=== PATIENT | male | born 1970 | race Caucasian/White ===

== ENCOUNTER 2020-07-28 23:12 | Emergency (ER) | payer MEDICARE, OTHER ==
[~2020-07-28] VITALS: Ht 172.7 cm; Wt 72.6 kg
[~2020-07-28 23:12] MED LIST: BUPR75TA3; FLUO10CA26; GABA100C; HIV MEDICATION
--- NOTE | 2020-07-28 23:20 | NUR ---
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 PT ALSO C/O BURNING SENSATION OF THROAT. PT STATES "I WAS CLEANING AT WORK AND THE BOTTLE DIDN'T HAVE A LABEL SO I OPENED THE CAP TO SMELL IT, AND IT IMMEDIATELY BURNED MY THROAT". PT AAOX4. O2 SAT 79% ROOM AIR, PLACED ON 15L NONREBREATHER AND TOLERATING WELL, O2 SAT NOW 100%. NOTED DRY COUGH. AMBULATORY WITH STEADY GAIT. PLACED IN GOWN AND ON CONTINOUS ACCOUNTS RECEIVABLE PROCESSOR AND PULSE OX, WILL CONTINUE TO MONITOR
--- NOTE | 2020-07-28 23:25 | NUR ---
RT AT BEDSIDE
--- NOTE | 2020-07-28 23:49 | NUR ---
SPOKE WITH OVIDIO FROM POISON CONTROL. RECOMMENDED TO GET CXR, ADMINISTER BREATHING TREATMENT IF NEEDED. CONTINUE OXYGEN. MONITOR FOR 2-4 HOURS. NO LABS NEEDED, SUPPORTIVE MEASURES UNTIL FULLY ASYMTOMATIC.
[2020-07-28 23:54] LABS: BASOPHILS % (AUTO) 0.6 % (0.0-2.0); EOSINOPHILS % (AUTO) 2.7 % (0.0-6.0); HEMATOCRIT 49 % (39-51); HEMOGLOBIN 16.5 g/dL (13.5-17.5); LYMPHOCYTES # (AUTO) 2.7 /CMM (0.8-4.8); LYMPHOCYTES % (AUTO) 40.9 % (20.0-44.0); MEAN CORPUSCULAR HGB CONC 34 g/dl (31.0-36.0); MEAN CORPUSCULAR VOLUME 86 fL (80-96); MONOCYTES # (AUTO) 0.5 /CMM (0.1-1.30); MONOCYTES % (AUTO) 8.1 % (2.0-12.0); NEUTROPHILS # (AUTO) 3.1 /CMM (1.8-8.9); NEUTROPHILS % (AUTO) 47.7 % (43.0-81.0); PLATELET COUNT (AUTO) 211 /CMM (150-450); RED BLOOD CELL COUNT(AUTO) 5.66 MIL/uL (4.5-6.0); WHITE BLOOD COUNT (AUTO) 6.6 K/uL (4.3-11.0)
[2020-07-29] MEDS ORDERED: ALBUTEROL FS 2.5 MG/3 ML VIAL.NEB NEB ONE
[2020-07-29] MEDS ORDERED: IPRATROPIUM NEB FS 0.5 MG/2.5 ML AMPUL.NEB NEB ONE
--- NOTE | 2020-07-29 00:01 | NUR ---
RADIOLOGY AT BEDSIDE FOR CXR
[2020-07-29 00:19] LABS: ALANINE AMINOTRANSFERASE 29 U/L (12-78); ALBUMIN 4.2 g/dL (3.4-5.0); ALKALINE PHOSPHATASE 86 U/L (46-116); ASPARTATE AMINOTRANSFERASE 45 U/L (15-37); B-TYPE NATRIURETIC PEPTIDE 92 PG/ML (0-125); BILIRUBIN,DIRECT 0.1 mg/dL (0.0-0.2); BILIRUBIN,TOTAL 0.5 mg/dL (0.2-1.0); CALCIUM, SERUM 8.9 mg/dL (8.5-10.1); CARBON DIOXIDE 28 mmol/L (21-32); CHLORIDE 103 mmol/L (98-107); CREATININE 0.9 mg/dL (0.6-1.3); GLUCOSE 121 mg/dL (74-106); POTASSIUM 4.9 mmol/L (3.5-5.1); SODIUM SERUM 140 mmol/L (136-145); TOTAL PROTEIN, SERUM 8.2 g/dL (6.4-8.2); UREA NITROGEN, BLOOD 16 mg/dL (7-18)
[2020-07-29 00:22] LABS: ABG BASE EXCESS -1.9 mmol/L; ABG OXYGEN SATURATION 98.9 % (92.0-98.5); ABG PCO2 42.7 mmHg (35.0-45.0); ABG PO2 447.1 mmHg (75.0-100.0); AaDO2 223.2 mmHg; COHb 0.5 % (0.5-1.5); MetHb 0.5 % (0.0-1.5); O2Hb 97.9 % (94.0-97.0); SITE, ABG Left Radial
[2020-07-29] MEDS ORDERED: IPRATROPIUM NEB FS 0.5 MG/2.5 ML AMPUL.NEB ONE (00:36)
[2020-07-29] MEDS ORDERED: ALBUTEROL FS 2.5 MG/0.5 ML VIAL.NEB ONE (00:36)
--- NOTE | 2020-07-29 01:00 | NUR ---
PT TITRATED DOWN TO 6L SIMPLE MASK. PT TOLERATING WELL, O2 SAT 100%
--- NOTE | 2020-07-29 02:11 | NUR ---
ATTEMPTED TO TITRATE PT TO NASAL CANNULA 2L, O2 SAT 90%. PT ON 5L NC O2 SAT 95%
[2020-07-29] MEDS ORDERED: ACETAMINOPHEN ES 500 MG TABLET ONE (02:45)
[2020-07-29] MEDS ORDERED: ACETAMINOPHEN ES 500 MG TABLET PO ONE (03:00)
--- NOTE | 2020-07-29 04:58 | NUR ---
SPOKE WITH OVIDIO FROM POISON CONTROL. PER OVIDIO, CASE CLOSED
--- NOTE | 2020-07-29 05:16 | NUR ---
Patient discharged to home in stable condition. Written and verbal after care instructions given. Patient verbalizes understanding of instruction.IV removed. Catheter intact and site benign. Pressure and 4x4 applied to site. No bleeding noted.Pt ambulatory with a steady gait
[2020-07-29 05:39] VITALS: BP 132/80
== END 2020-07-29 05:40 | disposition home or self-care (01) ==
LOC: ER 23:15
DX: Z77.098 Contact with and (suspected) exposure to other hazardous, chiefly nonmedicinal, chemicals (principal); R06.02 Shortness of breath; Z79.899 Other long term (current) drug therapy
CPT/HCPCS: 36415; 36600; 71045-TC; 80048-TC; 80076-TC; 82803-TC; 83880; 84484-TC; 85025-TC